=== PATIENT | female | born 1970 | race Caucasian/White ===

== ENCOUNTER 2019-01-29 14:11 | Emergency (ER) | payer SELFPAY ==
[~2019-01-29] VITALS: Ht 152.4 cm; Wt 63.8 kg
[2019-01-29 14:49] VITALS: Ht 152.4 cm; Wt 63.8 kg
--- NOTE | 2019-01-29 16:29 | ERD ---
ER Documentation Chief Complaint Chief Complaint mental illness x 1 month, stated being followed, lack of appetitie HPI This is a 49-year-old female with a history of OCD who is not getting any treatment whatsoever with medication. Patient is obsessive compulsive about washing her hands to the point where her hands are red and irritated. The patient is here with her son states that she is also complaining that she is being stalked by a male person but there is no other information given and she will not share it. She also feels like she is being poisoned and will drink water or eat food. She selectively has very little water intake or food and eats and only a banana or apple that she is washed excessively. She is not h omicidal or suicidal. ROS All systems reviewed and are negative except as per history of present illness. Allergies Allergies: Coded Allergies: No Known Allergy (Unverified , 01/29/19) PMhx/Soc Medical and Surgical Hx: pt denies Medical Hx, pt denies Surgical Hx Hx Alcohol Use: No Hx Substance Use: No Hx Tobacco Use: No Smoking Status: Unknown if ever smoked FmHx Family History: No coronary disease Physical Exam Vitals Vital Signs Date Temp Pulse Resp B/P (MAP) Pulse Ox O2 O2 Flow FiO2 Time Delivery Rate 01/29/19 98.8 116 16 139/76 99 Room Air 15:17 (97) 01/29/19 98.8 90 16 147/70 99 14:49 (95) Physical Exam Const: Well-developed, well-nourished Head: Atraumatic, normocephalic Eyes: Normal Conjunctiva, PERRLA, EOMI, normal sclera, no nystagmus ENT: Normal External Ears, Nose and Mouth, moist mucus membranes. Neck: Full range of motion. No meningismus, no lymphadenopathy. Resp: Clear to auscultation bilaterally, no wheezing, rhonchi, rales Cardio: Regular rate and rhythm, no murmurs, S1 S2 present Abd: Soft, non tender x 4, non distended. Normal bowel sounds, no guarding or rebound, no pulsitile abdominal masses or bruits Skin: No petechiae or rashes, no ecchymosis , no maculopapular rash, both of her hands are pink from the wrist distally from mildly chafed skin from excessive washing Back: No midline or flank tenderness Ext: No cyanosis, or edema, FROM x 4, normal inspection, neurovascularly intact x 4 Neur: Awake and alert, STR 5/5 x 4, sensation intact x 4, no focal findings, cerebellum intact Psych: Normal Mood and Affect Result Diagram: 01/29/19 1530 01/29/19 1530 Results 24 hrs Laboratory Tests Test 01/29/19 15:10 01/29/19 15:30 Urine Test NEGATIVE Urine Opiates Screen Negative Urine Barbiturates Negative Urine Amphetamines Screen Negative Urine Benzodiazepines Screen Negative Urine Cocaine Screen Negative Urine Cannabinoids Negative White Blood Count 7.7 10^3/ul Red Blood Count 4.50 10^6/ul Hemoglobin 13.7 g/dl Hematocrit 41.2 % Mean Corpuscular Volume 91.6 fl Mean Corpuscular Hemoglobin 30.4 pg Mean Corpuscular Hemoglobin Concent 33.3 g/dl Red Cell Distribution Width 13.3 % Platelet Count 281 10^3/UL Mean Platelet Volume 10.2 fl Immature Granulocytes % 0.300 % Neutrophils % 71.6 % Lymphocytes % 19.1 % Monocytes % 8.1 % Eosinophils % 0.4 % Basophils % 0.5 % Nucleated Red Blood Cells % 0.0 /100WBC Immature Granulocytes # 0.020 10^3/ul Neutrophils # 5.5 10^3/ul Lymphocytes # 1.5 10^3/ul Monocytes # 0.6 10^3/ul Eosinophils # 0.0 10^3/ul Basophils # 0.0 10^3/ul Nucleated Red Blood Cells # 0.0 10^3/ul Sodium Level 138 mmol/L Potassium Level 3.5 mmol/L Chloride Level 102 mmol/L Carbon Dioxide Level 23 mmol/L Anion Gap 13 Blood Urea Nitrogen 8 mg/dl Creatinine 0.62 mg/dl Est Glomerular Filtrat Rate mL/min > 60 mL/min Glucose Level 107 mg/dl Calcium Level 10.1 mg/dl Total Bilirubin 0.8 mg/dl Direct Bilirubin 0.00 mg/dl Indirect Bilirubin 0.8 mg/dl Aspartate Amino Transf (AST/SGOT) 38 IU/L Alanine Aminotransferase (ALT/SGPT) 37 IU/L Alkaline Phosphatase 59 IU/L Total Protein 7.7 g/dl Albumin 4.5 g/dl Globulin 3.20 g/dl Albumin/Globulin Ratio 1.40 Salicylates Level < 1.0 mg/dl Acetaminophen Level < 10.0 ug/ml Ethyl Alcohol Level < 10.0 mg/dl Procedures/MDM I will get some baseline labs and have the patient evaluated by telemetry psychiatrist. The patient's OCD/psychosis is getting so severe that she is starting to limit her water and food intake. She is not on any medications and needs to be on some pharmacological support. She is not suicidal or homicidal. Like to get her evaluated for the appropriate medication choice and dosage OR may be a thteat to self due ot not eating. Psychiatry eval will be an admission to the hospital because the patient says sh e will be afraid to take the medication and will have to wash her mouth out several times and is likely she will take it and there is intellectually challenged child at home. The psych doctor recommended Haldol 2 mg twice daily with Ativan 1 mg a day and to give a dose now Patient will be transferred to inpatient psych Departure Diagnosis: Primary Impression: OCD (obsessive compulsive disorder) Obsessive-compulsive disorder type: unspecified Qualified Codes: F42.9 - Obsessive-compulsive disorder, unspecified Condition: Stable PAMELA BROWN DO Jan 29, 2019 16:29
--- NOTE | 2019-01-29 18:54 | PSY ---
Date/Time of Note Date/Time of Note DATE: 01/29/19 TIME: 18:32 Psychiatric Subjective Eval Consent Pt consented to telemedicine: Yes Subjective Evaluation Patient location: emergency Chief Complaint: mental illness x 1 month, stated being followed, lack of appetitie Reason for consult: OCD and paranoia History of present illness 49 yo female with PPH of depression and OCD for 14 years never treated , who was brought to the ER by her 21 yo son due to worsening OCD symptoms and paranoia, she has been feeling more depressed and anxious since her left her for another woman 5 motnhs ago that he got and left her with her 21 yo son and 14 yo son who has intellectual disability, she has been increasingly paranoid about a maintenance ame in her building that she feels is following her and harrassing her, she states " the man is going to get into my body,into my cells , she fells that her whole house is contaminated by him ", she only eats one aple and a little bit of water per day if she cleans the bottle more than 20 times and feels that its alright , she has been feeling depressed, hopeless and helpless due to feeling harassed by this man, she states that she wants to eat but she cant because she is afraid to be contaminated, she cant touch her family anymore, her OCD symptoms got worst over the past 2 months , she has been washing her hand so much that they are very irritated. she denies any si or hi, no hallucination, she agrees to be admitted. Past psychiatric history denies Hospitalization: no Medical history Problems Medical Problems: (1) OCD (obsessive compulsive disorder) Status: Acute Allergies: Coded Allergies: No Known Allergy (Unverified , 01/29/19) Substance Abuse Substance use: No known substance abuse Substance abuse history: No Prior substance abuse treatmen: No Social History Marital status: other Level of education: hs DPA/Conservatorship: No Occupation/Residential: no Psychiatric Objective Eval Review of Systems: Review of Systems: Not Applicable Physical Examination: Sleep: Insomnia Appetite: Decreased Energy: Decreased Interest: Decreased Mental Status Examination: Appearance: Groomed Eye Contact: Good Psychomotor Activity: Normal Behavior: Cooperative Speech: Clear AFFECT: Depressed, Anxious Mood: Depressed, Anxious Though Process: Linear Thought Content: Delusions, Thought Insertion, Obsessions Suicidal: No Homicidal: No On 72 hour hold: No Orientation: x4 Cognition: Alert Insight: Impared Judgement: Impared Attention Span: Distractible Laboratory Results Laboratory Tests Test 01/29/19 15:10 01/29/19 15:30 Urine Test NEGATIVE Urine Opiates Screen Negative Urine Barbiturates Negative Urine Amphetamines Screen Negative Urine Benzodiazepines Screen Negative Urine Cocaine Screen Negative Urine Cannabinoids Negative White Blood Count 7.7 10^3/ul Red Blood Count 4.50 10^6/ul Hemoglobin 13.7 g/dl Hematocrit 41.2 % Mean Corpuscular Volume 91.6 fl Mean Corpuscular Hemoglobin 30.4 pg Mean Corpuscular Hemoglobin Concent 33.3 g/dl Red Cell Distribution Width 13.3 % Platelet Count 281 10^3/UL Mean Platelet Volume 10.2 fl Immature Granulocytes % 0.300 % Neutrophils % 71.6 % Lymphocytes % 19.1 % Monocytes % 8.1 % Eosinophils % 0.4 % Basophils % 0.5 % Nucleated Red Blood Cells % 0.0 /100WBC Immature Granulocytes # 0.020 10^3/ul Neutrophils # 5.5 10^3/ul Lymphocytes # 1.5 10^3/ul Monocytes # 0.6 10^3/ul Eosinophils # 0.0 10^3/ul Basophils # 0.0 10^3/ul Nucleated Red Blood Cells # 0.0 10^3/ul Sodium Level 138 mmol/L Potassium Level 3.5 mmol/L Chloride Level 102 mmol/L Carbon Dioxide Level 23 mmol/L Anion Gap 13 Blood Urea Nitrogen 8 mg/dl Creatinine 0.62 mg/dl Est Glomerular Filtrat Rate mL/min > 60 mL/min Glucose Level 107 mg/dl Calcium Level 10.1 mg/dl Total Bilirubin 0.8 mg/dl Direct Bilirubin 0.00 mg/dl Indirect Bilirubin 0.8 mg/dl Aspartate Amino Transf (AST/SGOT) 38 IU/L Alanine Aminotransferase (ALT/SGPT) 37 IU/L Alkaline Phosphatase 59 IU/L Total Protein 7.7 g/dl Albumin 4.5 g/dl Globulin 3.20 g/dl Albumin/Globulin Ratio 1.40 Salicylates Level < 1.0 mg/dl Acetaminophen Level < 10.0 ug/ml Ethyl Alcohol Level < 10.0 mg/dl Assessment and Plan Assessment/Diagnosis Diagnosis 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
[2019-01-29] MEDS ORDERED: LORAZEPAM 1 MG TAB PO ONE (19:00)
[2019-01-29] MEDS ORDERED: HALOPERIDOL 1 MG TAB PO ONE (19:00)
--- NOTE | 2019-01-30 06:23 | EN ---
Date/Time of Note Date/Time of Note DATE: 01/30/19 TIME: 06:22 ER Progress Note Observation Note: Time: 4 hours Family Hx: [Negative] for diabetes Evaluation: Multiple exams showed patient is stable. Awaiting transfer. ANALY TORREZ MD Jan 30, 2019 06:23
--- NOTE | 2019-01-31 05:53 | EN ---
Date/Time of Note Date/Time of Note DATE: 01/31/19 TIME: 05:52 ER Progress Note Observation Note: Time: 4 hours Family Hx: [Negative] for diabetes Evaluation: Patient remained stable, no distress, awaiting transfer ANALY TORREZ MD Jan 31, 2019 05:53
[2019-01-31 09:00] VITALS: BP 135/61; PULSE 60; RESP 16
== END 2019-01-31 09:30 | disposition home or self-care (01) ==
LOC: E/R 14:11
DX: F42.9 Obsessive-compulsive disorder, unspecified (principal)
CPT/HCPCS: 36415; 80053; 80307; 84703; 85025; 93005; 99283